=== PATIENT | female | born 1965 | race Caucasian/White ===

== ENCOUNTER 2016-03-31 07:23 | Emergency (ER) | payer OTHER ==
[2016-03-31 07:48] VITALS: BP 135/77
--- NOTE | 2016-03-31 08:38 | UC ---
Respiratory Complaint HPI - HPI Summary HPI Summary: The patient comes in today for: 1. Cough, sinus pressure: Onset: 2 weeks ago. Palliative/provocative: None. Quality: Ache Region: Sinuses Severity: 0/10 Time: Constant. Associated symptoms: Rhinitis: Yellow Sore throat: Present. Upper tooth pain: Upper left. Cough: Yellow sputum Chest pain: None. Dyspnea: None. Fevers: None, but chills. * - History of Current Complaint Chief Complaint: UCRespiratory Stated Complaint: SINUS/COUGH Time Seen by Provider: 03/31/16 08:31 Hx Obtained From: Patient Hx Last Menstrual Period: 06/14/14 ?: No - Allergies/Home Medications Allergies/Adverse Reactions: Allergies Allergy/AdvReac Type Severity Reaction Status Date / Time Ciprofloxacin [From Cipro] Allergy Intermediate Rash Verified 03/31/16 07:42 environmental allergies Allergy Congestion Uncoded 03/31/16 07:42 Home Medications: Home Medications Ibuprofen [Advil] 400 mg PO ONCE PRN 03/31/16 [History Confirmed 03/31/16] [id number] [Nyquil Severe Cold/Flu 5-6.25-10-325 mg/15Ml] 1 liq PO ONCE PRN 03/31/16 [History Confirmed 03/31/16] PMH/Surg Hx/FS Hx/Imm Hx Previously Healthy: No - Irritable bowel. Endocrine History Of: Denies: Diabetes, Thyroid Disease, Hyperthyroidism, Hypothyroidism, Dyslipidemia Cardiovascular History Of: Reports: Cardiac Disorders - mitral valve prolapse Denies: Hypertension, Pacemaker/ICD, Myocardial Infarction, Congestive Heart Failure, Atrial Fibrillation, Deep Vein Thrombosis, Bleeding Disorders Respiratory History Of: Denies: COPD, Asthma, Bronchitis, Pneumonia, Pulmonary Embolism GI/ History Of: Denies: Gastroesophageal Reflux, Ulcer, Gastrointestinal Bleed, Gall Bladder Disease, Kidney Stones, Diverticulitis, Renal Disease, Urosepsis Neurological History Of: Denies: TIA, CVA, Dementia, Seizures, Migraine Psychological History Of: Denies: Anxiety, Depression, Bipolar Disorder, Schizophrenia, Post Traumatic Stress Disorder Cancer History Of: Denies: Lung Cancer, Colorectal Cancer, Breast Cancer, Prostate Cancer, Cervical Cancer Other History Of: Negative For: HIV, Hepatitis B, Hepatitis C, Anticoagulant Therapy - Surgical History Surgical History: Yes Surgery Procedure, Year, and Place: c section x 1, miscarriage surgery - Family History Known Family History: Positive: Cardiac Disease Negative: Hypertension - Social History Occupation: Employed Full-time Alcohol Use: Occasionally Substance Use Type: None Smoking Status (MU): Never Smoked Tobacco - Immunization History Most Recent Influenza Vaccination: 2016 Review of Systems Constitutional: Negative Skin: Negative Eyes: Negative ENT: Nasal Discharge Respiratory: Cough Cardiovascular: Negative Gastrointestinal: Negative Genitourinary: Negative All Other Systems Reviewed And Are Negative: Yes Physical Exam Triage Information Reviewed: Yes Appearance: Well-Appearing, No Pain Distress, Well-Nourished Vital Signs: Initial Vital Signs Temp 97.7 F 03/31/16 07:44 Pulse 105 03/31/16 07:44 Resp 16 03/31/16 07:44 BP 135/77 03/31/16 07:44 Pulse Ox 97 03/31/16 07:44 Vital Signs Reviewed: Yes Eyes: Positive: Conjunctiva Clear. Negative: Discharge ENT: Positive: Hearing grossly normal, Nasal congestion. Negative: Pharyngeal erythema, Nasal drainage, TM bulging, TM dull, TM red, Tonsillar swelling, Tonsillar exudate Dental: Negative: Gross Decay/Caries @, Dental Fracture @ Neck: Positive: Supple, Nontender, No Lymphadenopathy. Negative: Nuchal Rigidity Respiratory: Positive: Chest non-tender, Lungs clear, No respiratory distress, No accessory muscle use. Negative: Crackles, Wheezing Cardiovascular: Positive: RRR, No Murmur Abdomen Description: Positive: Nontender, No Organomegaly, Soft. Negative: Distended, Guarding Musculoskeletal: Positive: Strength Intact, ROM Intact Neurological: Positive: Alert, Muscle Tone Normal Psychological: Positive: Age Appropriate Behavior, Consolable Skin: Negative: rashes, breakdown UC Diagnostic Evaluation - Laboratory O2 Sat by Pulse Oximetry: 97 Respiratory Course/Dx - Differential Dx/Diagnosis Differential Diagnosis/HQI/PQRI: Bronchitis, Laryngitis, Sinusitis Provider Diagnoses: Upper respiratory infection. Sinusitis. Bronchitis Discharge - Discharge Plan Condition: Stable Disposition: HOME Patient Education Materials: Sinusitis (ED), Acute Bronchitis (ED) Referrals: Herb Easton MD [Primary Care Provider] - 1 Week (Please see your primary care provider in about a week to see how well you are doing. If you get worse, please be seen sooner.)
== END 2016-03-31 08:48 | disposition home or self-care (01) ==
LOC: UCCORT 07:23
DX: J06.9 Acute upper respiratory infection, unspecified (principal); J32.9 Chronic sinusitis, unspecified; J40 Bronchitis, not specified as acute or chronic; Z88.1 Allergy status to other antibiotic agents
CPT/HCPCS: 99212; G0463

== ENCOUNTER 2017-04-10 10:22 | Emergency (ER) | payer OTHER ==
[2017-04-10 13:02] VITALS: BP 138/82
--- NOTE | 2017-04-10 13:37 | UC ---
UC General HPI - HPI Summary HPI Summary: 51 yo female with severe bilateral arthralgias x 1-2 days joint swollen and stiff no f/c fatigue and malaise no ROMERO no URI symptoms urine may be a little dark no n/v/d - History of Current Complaint Chief Complaint: UCRespiratory Stated Complaint: FLU SYMPTOMS Time Seen by Provider: 04/10/17 13:00 Hx Obtained From: Patient Hx Last Menstrual Period: 06/14/14 Onset/Duration: Gradual Onset Onset Severity: Moderate Current Severity: Moderate Pain Intensity: 8 Pain Location at: hands/wrists/elbow/shoulders/hips/knee/ankles - Allergy/Home Medications Allergies/Adverse Reactions: Allergies Allergy/AdvReac Type Severity Reaction Status Date / Time ciprofloxacin Allergy Intermediate Rash Verified 04/10/17 12:55 environmental allergies Allergy Congestion Uncoded 04/10/17 12:55 Home Medications: Home Medications Ezetimibe TAB* [Zetia TAB*] 10 mg DAILY 04/10/17 [History Confirmed 04/10/17] PMH/Surg Hx/FS Hx/Imm Hx Previously Healthy: Yes Other History Of: Negative For: HIV, Hepatitis B, Hepatitis C, Anticoagulant Therapy - Surgical History Surgical History: Yes Surgery Procedure, Year, and Place: c section x 1, D/C - Family History Known Family History: Positive: Cardiac Disease, Other - no auto immune diseases Negative: Hypertension - Social History Alcohol Use: None Substance Use Type: None Smoking Status (MU): Never Smoked Tobacco - Immunization History Most Recent Influenza Vaccination: 2015 Review of Systems Constitutional: Negative Skin: Negative Eyes: Negative ENT: Negative Respiratory: Negative Cardiovascular: Negative Gastrointestinal: Negative Genitourinary: Negative Motor: Negative Neurovascular: Negative Musculoskeletal: Arthralgia Neurological: Negative Psychological: Negative Is Patient Immunocompromised?: No All Other Systems Reviewed And Are Negative: Yes Physical Exam Triage Information Reviewed: Yes Appearance: Well-Appearing, Pain Distress Vital Signs: Initial Vital Signs Temp 97.9 F 04/10/17 12:55 Pulse 84 04/10/17 12:55 Resp 16 04/10/17 12:55 BP 138/82 04/10/17 12:55 Pulse Ox 100 04/10/17 12:55 Vital Signs Reviewed: Yes Eyes: Positive: Conjunctiva Clear ENT: Positive: Uvula midline. Negative: Nasal congestion, Nasal drainage, Trismus, Muffled voice, Hoarse voice, Dental tenderness Neck: Positive: Supple, Nontender, No Lymphadenopathy Respiratory: Positive: Lungs clear, Normal breath sounds, No respiratory distress, No accessory muscle use Cardiovascular: Positive: RRR, No Murmur Musculoskeletal: Positive: ROM Limited @ - fingers, Edema @ - all joints appear a little edematous but no redness or heat Neurological: Positive: Alert Psychological Exam: Normal Skin Exam: Other - 4 scabs overlying left scapula- of uncertain cause Course/Dx - Course Course Of Treatment: flu (-) - Differential Dx - Multi-Symptom Provider Diagnoses: arthralgias-etiology unknown Discharge - Discharge Plan Condition: Stable Disposition: HOME Prescriptions: Ibuprofen TAB* [Motrin TAB*] 600 mg PO Q6H PRN #40 tab PRN Reason: Pain Patient Education Materials: Arthralgia (ED) Forms: *Work Release Referrals: Herb Easton MD [Primary Care Provider] - As Soon As Possible Additional Instructions: I am unsure of the cause of your multiple joint aches Blood work is pending and further testing is likely needed Get in to see your provider first available appt heat may help
[2017-04-10 18:10] LABS: ABS Basophils 0.1 10^3/ul (0-0.2); ABS Eosinophils 0.1 10^3/ul (0-0.6); ABS Lymphocytes 0.9 10^3/ul (1.0-4.8); ABS Monocytes 0.3 10^3/ul (0-0.8); ABS Neutrophils 3.4 10^3/ul (1.5-7.7); ABS Nucleated RBC 0 10^3/ul; Hematocrit 39 % (35-47); Hemoglobin 13.7 g/dl (12.0-16.0); Lymphocyte % 19.8 % (25-47); Mean Corpuscular HGB Conc 35 g/dl (31-36); Mean Corpuscular Hemoglobin 31 pg (27-31); Mean Corpuscular Volume 88 fL (80-97); Mean Platelet Volume 6 um3 (7.4-10.4); Nucleated Red Blood Cells % 0.4; Platelet Count 254 10^3/ul (150-450); Red Blood Count 4.43 10^6/ul (4.0-5.4); Red Cell Distribution Width 13 % (10.5-15); White Blood Count 4.8 10^3/ul (3.5-10.8)
--- NOTE | 2017-04-11 08:25 | UC ---
- Progress Note Progress Note: cbc nml, esr high at 36. lyme pending. agree w/ Dr Martinez's assessment of f/u w/ pcp for more testing 1st available appt
== END 2017-04-10 14:02 | disposition home or self-care (01) ==
LOC: UCCORT 10:22
DX: M25.50 Pain in unspecified joint (principal)
CPT/HCPCS: 36415; 81003; 85025; 85652; 86038; 86618; 87502; 99212; G0463